=== PATIENT | female | born 1970 | race Caucasian/White ===

== ENCOUNTER → 2020-12-02 13:01 | Outpatient (CLI) | payer BC, SELFPAY ==
[2020-12-02 13:50] LABS: Basophils # 0.1 K/mm3 (0-0.2); Basophils % 0.5 % (0.1-2.0); Eosinophils # 0.4 K/mm3 (0.0-0.4); Eosinophils % 3.9 % (0.1-12.0); Hematocrit 42.4 % (37.0-47.0); Hemoglobin 14.1 g/dL (12.2-16.2); Lymphocytes # 3.3 K/mm3 (0.7-4.5); Lymphocytes % 36.8 % (10-50); Mean Corpuscular HGB Conc 33.2 g/dL (31.8-35.4); Mean Corpuscular Hemoglobin 32.2 pg (27.0-31.2); Mean Corpuscular Volume 97.1 fl (81-99); Mean Platelet Volume 8.2 fl (7.4-10.4); Monocytes # 0.3 K/mm3 (0.1-1.0); Monocytes % 3.5 % (1.7-9.3); Neutrophils # 4.9 K/mm3 (1.8-7.8); Neutrophils % 55.3 % (37.0-80.0); Platelet Count 409 K/mm3 (142-424); Red Blood Count 4.37 M/mm3 (4.20-5.40); Red Cell Distribution Width 13.7 % (11.5-17.5); White Blood Count 8.9 K/mm3 (4.8-10.8)
== END ==
PROVIDERS: PCP Nurse Practitioner; Visit Provider Nurse Practitioner
DX: Z20.822 Contact with and (suspected) exposure to COVID-19 (principal)
CPT/HCPCS: 36415; 85025; 87275; 87276; C9803; U0003; U0005

== ENCOUNTER → 2021-03-01 12:09 | Outpatient (CLI) | payer BC, SELFPAY ==
--- NOTE | 2021-03-01 | CA_ITS ---
APPROVED REPORT Exam: Exercise Treadmill Technologist: Annette Martinez Ht: 5 ft 0 in Wt: 120 lbs BSA: 1.50 m2 HR: 71 bpm BP: 116/73 mmHg Indications: Chest pain Medical History Medications: Omeprazole,,,,, WELLBUTRIN,,,,, Stress Test Details Test: Brian HR Resting HR: 89 bpm Max Heart Rate (APMHR): 168.829527 bpm Max HR Achieved: 154 bpm Target HR (85% APMHR): 142.392270 bpm % of APMHR: 91.67 Recovery HR: 99 bpm BP Resting BP: 116.0/73.0 mmHg Max BP: 156.0/78.0 mmHg Recovery BP: 106.0/66.0 mmHg ECG Resting ECG: Normal sinus rhythm, rightward axis, non-diagnostic q waves inferiorly and laterally. Clinical Exercise duration: 09:30 min Highest Stage Achieved: Exercise capacity: 10.1 METs Stress ECG Conclusion Patient exercised 9:30 on Brian Protocol. Test stopped due to shortness of air, fatigue. Symptoms: Mild chest pressure. Arrhythmias/Ectopy: None ST-T Changes: Allowing for some motion artifact, the ST response to exercise appears to be within normal. Conclusion: Mild chest pain with normal EKGs during exercise. Myoview images reported separately. Test Summary RECOVERY 06:15 0.0 0.0 94 . 119/ 68 . . REST . . . . . . . Standing REST 04:04 0.0 0.0 89 . 116/ 73 . . Stage 1 01:00 10.0 1.7 97 . . . . Stage 1 02:00 10.0 1.7 99 . . . . Stage 1 03:00 10.0 1.7 102 . 134/ 70 . . Stage 2 01:00 12.0 2.5 109 . . . . Stage 2 02:00 12.0 2.5 114 . 135/ 70 . . Stage 2 03:00 12.0 2.5 118 . 135/ 70 . . Stage 3 01:00 14.0 3.4 126 . . . . Stage 3 02:00 14.0 3.4 137 . . . . Stage 3 . . . . . . . Myoview Injected Stage 3 03:00 14.0 3.4 141 . . . . Stage 4 00:30 16.0 4.2 154 . . . Stop exercise at 09:30 RECOVERY 01:00 0.0 0.0 128 . 150/ 68 . . RECOVERY 02:00 0.0 0.0 118 . 150/ 68 . . RECOVERY 03:00 0.0 0.0 100 . 156/ 78 . . RECOVERY 04:00 0.0 0.0 101 . 156/ 78 . . RECOVERY 05:00 0.0 0.0 97 . 106/ 66 . . RECOVERY 06:00 0.0 0.0 96 . 119/ 68 . . RECOVERY 06:15 0.0 0.0 94 . 119/ 68 . . Electronically signed by : Rodriguez Bravo MD 03/01/2021 18:55:10
--- NOTE | 2021-03-01 12:11 | NM_ITS ---
APPROVED REPORT Exam: Nuclear Stress Test Indication: Chest pain, Tobacco use, Family history Patient Location: Outpatient Stress Tech: Annette Martinez NM Tech:Juliana Bernal, ARRT, RT (R)(N) Ht: 5 ft 0 in Wt: 120 lbs Bra Size: 36B HR: 71 bpm BP: 116/73 mmHg BSA: 1.50 m2 History: Chest pain, Tobacco use, Family history Procedure: Patient exercised on Brian protocol 9:30 minutes and sec, resting heart rate 71 bpm, resting blood pressure 116/73 mmHg, with exercise maximum heart rate achived was 154 bpm which is 92 % of the maximum predicted heart rate and blood pressure was 156/78 mmHg. Test was stopped due to SOA and leg fatigue. Patient has good exercise capacity, achieved 10.1 METs of workload on treadmill, the blood pressure response to exercise was Adequate. Electrocardiogram Resting electrocardiogram shows sinus rhythm, with exercise there is less than 1.[address] segment depression noted from the baseline EKG. The EKG portion of the exercise Myoview is negative for ischemia. Cardiac Stress and Resting SPECT Images: Cardiac Stress and Resting SPECT images were obtained using technetium 99m Myoview 32.8 mCi stress and 10.23 mCi at rest. Gated SPECT for analysis of segmental wall motion and calculation of ejection fraction also done. Cardiac stress and resting SPECT images show uniform myocardial activity without segmental perfusion abnormality, computer derived ejection fraction is 59% with no regional wall motion abnormality, right ventricle is normal size and contractility. Conclusion: 1. The EKG portion of the exercise Myoview is negative for ischemia, patient has good exercise capacity achieved 10.1 METs of workload on treadmill, the blood pressure response to exercise was adequate, there is no exercise-induced chest discomfort. 2. No scintigraphic evidence of reversible ischemia seen, compared right ejection fraction is 59% with no regional wall motion abnormality, right ventricle is normal size and contractility. 3. Normal exercise Myoview study. Electronically signed by : Rodriguez Bravo MD 03/01/2021 19:12:20
--- NOTE | 2021-03-01 13:42 | HMH.ITSHM ---
Current Home Medications as stated by this patient Pallavi Valdes or international sales representative. []WELLBUTRIN ACID REFLUX MED
== END ==
PROVIDERS: PCP Family Medicine; Visit Provider Family Medicine
DX: R07.89 Other chest pain (principal)
CPT/HCPCS: 78452; 93017; A9502